=== PATIENT | female | born 1975 | race American Indian/Alaskan Native ===

== ENCOUNTER 2020-01-13 14:28 | Emergency (ER) | payer OTHER ==
[2020-01-13 14:45] VITALS: BP 131/71
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
== END 2020-01-13 17:14 | disposition home or self-care (01) ==
LOC: ED 14:28
DX: S80.02XA Contusion of left knee, initial encounter (principal); M79.659 Pain in unspecified thigh; M25.69 Stiffness of other specified joint, not elsewhere classified; Z90.710 Acquired absence of both cervix and uterus; Z79.1 Long term (current) use of non-steroidal anti-inflammatories (NSAID); Z88.8 Allergy status to other drugs, medicaments and biological substances; V49.49XA Driver injured in collision with other motor vehicles in traffic accident, initial encounter; Y93.89 Activity, other specified; Y92.410 Unspecified street and highway as the place of occurrence of the external cause; Y99.8 Other external cause status
CPT/HCPCS: 99282